=== PATIENT | female | born 1980 | race Caucasian/White ===

== ENCOUNTER 2024-08-05 11:30 | Emergency (ER) | payer OTHER, SELFPAY ==
[2024-08-05 11:31] VITALS: BP 123/80
--- NOTE | 2024-08-05 13:03 | ED.GENMED ---
History of Present Illness
General
Chief Complaint: Oral/Mouth Problem
Time Seen by Provider: 08/05/24 12:38
History of Present Illness
History of Present Illness:
44-year-old female presents to the emergency department for evaluation of right upper dental pain. She underwent a dental extraction with implant procedure done approximately 6 weeks ago, this was complicated by postprocedural infection and
subsequent extrusion of the implant and bone graft placement. She had 1 week of Augmentin but has been off antibiotics for the past 2 weeks. Denies any fevers or chills. She did make an appointment to see her dentist this afternoon however
canceled it in favor of coming to the emergency department. Reports mild pain to the right upper gingiva currently
Past History
Past History
ED Past Medical History: None
ED Past Surgical History: and Other (s/p removal soft tissue mass left foot.)
Social History
Tobacco: Smoker
Alcohol: None
Drug: None
Personal:
Living: with family
Review of Systems
Review of Systems
Allergies reviewed?: Yes
All Other Systems: ROS reviewed and negative except as documented in HPI and ROS
Phy Exam
Physical Exam
Physical Exam:
GEN: Well appearing, NAD, WDWN
HEENT: Oral mucosa moist, no scleral icterus. Moderate gingival erythema diffusely with numerous dental caries. Status post excision of tooth #5 with exposed maxillary tissue superior to the excision; no oropharyngeal abnormalities
Cardiac: Regular rate
Lung: No respiratory distress, no tachypnea
MSK: No gross deformity or injuries
Skin: Good color, no pallor or jaundice, no rashes
Neuro: AO x3, moves all extremities freely
Psych: Calm, cooperative
Course
Vital Signs
Initial and Last Documented VS:
Initial Vital Signs
Temp Pulse Resp BP Pulse Ox
97.8 F 76 16 123/80 100
08/05/24 11:31 08/05/24 11:31 08/05/24 11:31 08/05/24 11:31 08/05/24 11:31
Last Documented Vital Signs
Temp Pulse Resp BP Pulse Ox
97.8 F 76 16 123/80 100
08/05/24 11:31 08/05/24 11:31 08/05/24 11:31 08/05/24 11:31 08/05/24 11:31
MDM/Problems Addressed
MDM/Problems Addressed:
Given that she has pain we will provide a course of antibiotics however this certainly does not look acutely infected rather the patient benefit from following up with her dental specialist to determine a definitive course of treatment going forward
*Critical Care Note
Total Time (30-74mins, 75-104mins- exclusive of procedures): Not Applicable
ED Attending Note
-
Portions of this chart may have been created with voice recognition software.� Occasional wrong word or��sound alike� substitutions may have occurred due to the inherent limitations of voice recognition software.
Discharge Plan
Departure
Patient Disposition: Home (Routine Discharge)
Date of Disposition: 08/05/24
Time of Disposition: 13:03
Patient with high blood pressure during this ER visit?: No
Discharge Problem:
Dental caries
Instructions: Dental Pain (DC)
Prescriptions:
New
amoxicillin-pot clavulanate 875-125 mg tablet
1 tab PO BID Qty: 10 0RF
No Action
cyclobenzaprine 10 MG tablet
10 mg PO HSPRN PRN (Reason: muscle spasms)
cyanocobalamin (vitamin B-12) 1,000 MCG tablet
2,500 mcg PO DAILY
omeprazole [Prilosec] 10 MG capsule,delayed release(DR/EC)
20 mg PO DAILY
azelaic acid [Azelex] 30 GM cream
1 apply topical DAILY
gabapentin 300 MG capsule
900 mg PO BID
folic acid 1 MG tablet
1 mg PO DAILY
hydroxychloroquine 200 MG tablet
300 mg PO DAILY
cholecalciferol (vitamin D3) [Vitamin D3] 400 UNITS tablet
2,000 units PO DAILY
medroxyprogesterone 150 MG/ML suspension
150 mg IM .[id number]
cyclosporine [Restasis] 10 DROPS dropperette
1 drp BOTH EYES BID
adalimumab [Humira(CF) Pen [id number]] 80 MG/0.8 ML pen injector kit
80 mg SC Q14D
fluticasone propion-salmeterol [Advair Diskus] 1 DISK blister with device
1 puff inhalation R DAILY
tretinoin (emollient) 60 GM cream
1 applic topical HS
duloxetine 20 MG capsule,delayed release(DR/EC)
20 mg PO DAILY
lisdexamfetamine [Vyvanse] 30 MG capsule
30 mg PO DAILY
Patient Comments:
09/23/2021: last filled 08/25/21, 30 tabs for 30 days from [facility]
albuterol sulfate 1 PUFF HFA aerosol inhaler
2 puff inhalation R Q4HPRN PRN (Reason: sob/wheezing)
brimonidine [Alphagan P] 1 DROP drops
1 drp BOTH EYES Q8H
glycopyrronium tosylate [Qbrexza] 1 EACH towelette
1 ea topical DAILY
meclizine 25 MG tablet
25 mg PO Q8HPRN PRN (Reason: vertigo) Qty: 10 0RF
nicotine 21 MG patch 24 hour
21 mg transdermal DAILY Qty: 30 0RF
Referrals:
Rich Blanco MD, DDS [Active] -
Sally Piedra DO [Family Provider] -
Interventions
Interventions:
*Risk Screen - Suicide Last Done: 08/05/24 12:00
*General Assessment Last Done: 08/05/24 12:00
*Neglect/Abuse Screening Last Done: 08/05/24 12:00
*ED COVID-19 Vaccine History Last Done: 08/05/24 12:00
*Nursing Disposition Last Done: 08/05/24 13:08
Discharge Date and Time
Discharge Date/Time: 08/05/24 13:08
Print Language: NEPALI
== END 2024-08-05 13:08 | disposition home or self-care (01) ==
LOC: EMR 11:30
PROVIDERS: EMERGENCY PHYSICIAN Emergency Medicine; FAMILY PHYSICIAN Family Medicine
DX: K02.9 Dental caries, unspecified (principal); F17.200 Nicotine dependence, unspecified, uncomplicated; Z98.818 Other dental procedure status
CPT/HCPCS: 99283